=== PATIENT | male | born 1945 | race Caucasian/White ===

== ENCOUNTER 2017-08-31 10:18 | Inpatient (IN) | payer OTHER ==
[~2017-08-31] VITALS: Ht 180.3 cm; Wt 91.7 kg
[~2017-08-31 10:18] MED LIST: LASIX20 M1 PO; METOPROLOL TART50 M1 PO; TOPROL XL50 M1 PO
--- NOTE | 2017-08-31 10:20 | ED DYSPNEA/ASTHMA COMPLAINT ---
See Addendum History of Present Illness General Chief Complaint: Dyspnea (COPD, CHF, Other) Stated Complaint: BIBA SOB Source: patient Exam Limitations: clinical condition, poor historian Vital Signs & Intake/Output Vital Signs & Intake/Output Vital Signs Date Time Temp Pulse Resp B/P B/P Pulse O2 O2 Flow FiO2 Mean Ox Delivery Rate 08/31 1422 97.4 89 20 100/65 100 Nasal 2.0L Cannula 08/31 1400 87 20 105/67 98 Nasal 2.0L Cannula 08/31 1314 97.0 91 20 106/69 100 Nasal 2.0L Cannula 08/31 1223 98.5 96 20 107/69 100 Non 10L ReBreather 08/31 1123 100 Non 100% ReBreather 08/31 1114 100.7 08/31 1112 100.7 105 24 140/85 100 Non 100% ReBreather 08/31 1045 102.2 08/31 1021 102.2 120 30 175/98 98 Non 100% ReBreather Allergies Coded Allergies: No Known Allergies (02/04/16) Reconcile Medications Carvedilol 3.125 MG TABLET 1 TAB PO BID HEART (Reported) Furosemide (Lasix) 20 MG TABLET 1 TAB PO DAILY FLUID RETENTION Triage Nurses Notes Reviewed? 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 Patient denies any fever chills chest pain arm pain jaw pain and leg swelling hemoptysis nausea vomiting abdominal pain. Patient able to tolerate by mouth (Robert Barriga) Past History Medical History Any Pertinent Medical History? see below for history Cardiovascular: CHF, hypertension Surgical History Surgical History: non-contributory Psychosocial History What is your primary language Danish Family History Hx Contributory? No (Robert Barriga) Review of Systems Review of Systems Constitutional: Reports: see HPI. EENTM: Reports: no symptoms. Respiratory: Reports: see HPI, cough, short of breath. Cardiovascular: Reports: see HPI. Denies: chest pain. GI: Reports: no symptoms. Genitourinary: Reports: no symptoms. Musculoskeletal: Reports: no symptoms. Skin: Reports: no symptoms. Neurological/Psychological: Reports: no symptoms. Hematologic/Endocrine: Reports: no symptoms. Immunologic/Allergic: Reports: no symptoms. All Other Systems: Reviewed and Negative (Robert Barriga) Physical Exam Physical Exam General Appearance: mild distress Head: atraumatic Eyes: Bilateral: PERRL, EOMI, other (icteric). Ears, Nose, Throat: normal pharynx, hearing grossly normal Respiratory: chest non-tender, crackles, respiratory distress Cardiovascular: tachycardia Gastrointestinal: normal bowel sounds, soft, non-tender Extremities: TRACE BILATERAL LOWER EXTREMITY PITTING EDEMA Skin: intact Core Measures ACS in differential dx? Yes CVA/TIA Diagnosis No Sepsis Present: Yes Sepsis Focused Exam Completed? Yes (Robert Barriga) ED Sepsis Exam Date of Focused Sepsis Exam: 08/31/17 Time of Focused Sepsis Exam: 1200 Sepsis Cardiac Exam: Tachycardia Sepsis Resp Exam: CRACKLES Sepsis Cap Refill Exam: <2 Sec Sepsis Peripheral Pulse Exam: Normal Sepsis Peripheral Pulse Location: Radial Sepsis Skin Color Exam: Jaundiced Skin Temp/Moisture Exam: Hot/Dry (Robert Barriga) Progress Differential Diagnosis: asthma, AMI, bronchitis, costochondritis, CHF, COPD, musculoskeletal pain, pericarditis, pulmonary embolism, pneumonia, pneumothorax, unstable angina Plan of Care: Orders Procedure Date/time Status Nothing by Mouth 09/01 B Active TROPONIN LEVEL 08/31 2045 Active EKG 08/31 2045 Active ED Holding Orders 08/31 1700 Active Admit to inpatient 08/31 1700 Active Code Status 08/31 1700 Active LACTIC ACID 08/31 1645 Active TROPONIN LEVEL 08/31 1433 Complete EKG 08/31 1433 Active LACTIC ACID 08/31 1336 Complete Add-on Test (ER Only) 08/31 1157 Active Add-on Test (ER Only) 08/31 1117 Active CULTURE,URINE 08/31 1108 Active URINALYSIS 08/31 1108 Complete Add-on Test (ER Only) 08/31 1053 Active THYROID STIMULATING HORMONE 08/31 1038 Complete THYROXINE 08/31 1038 Complete PARTIAL THROMBOPLASTIN TIME 08/31 1038 Complete PROTHROMBIN TIME 08/31 1038 Complete LIPASE 08/31 1038 Complete DIRECT BILIRUBIN 08/31 1038 Complete AMYLASE 08/31 1038 Complete AMMONIA LEVEL 08/31 1038 Complete ARTERIAL BLOOD GAS (GEN) 08/31 1036 Complete BLOOD CULTURE 08/31 1036 Active TROPONIN LEVEL 08/31 1036 Complete LACTIC ACID 08/31 1036 Complete COMPREHENSIVE METABOLIC PANEL 08/31 1036 Complete CBC WITHOUT DIFFERENTIAL 08/31 1036 Complete B-TYPE NATRIURETIC PEP (BNP) 08/31 1036 Complete EKG 08/31 1019 Active Laboratory Tests 08/31/17 1447: Troponin I 2.42 *H 08/31/17 1347: Lactic Acid 2.8 H 08/31/17 1110: Urinalysis HEAVY H, Urine Color YEL, Urine Clarity HAZY H, Urine pH 6.0, Ur Specific [place] >= 1.030, Urine Protein 100 H, Urine Ketones NEG, Urine Nitrite NEG, Urine Bilirubin NEG, Urine Urobilinogen 1.0, Ur Leukocyte Esterase NEG, Ur Microscopic SEDIMENT EXAMINED, Urine RBC 1-3, Urine WBC 1-3 H, Ur Epithelial Cells FEW, Urine Bacteria FEW H, Granular Casts 15-25 H, Urine Hemoglobin LARGE H, Urine Glucose NEG 08/31/17 1045: pH 7.41, pCO2 14 L, pO2 154 H, HCO3 8 L, ABG O2 Sat (Measured) 98.0, P-50 ( Temp Corrected) Y, Carboxyhemoglobin 0.6 L, O2 Concentration % 100%, Temperature 102.2 H, O2 Delivery Method NRB, Phlebotomy Draw Site LEFT RADIAL 08/31/17 1038: Anion Gap 21 H, Estimated GFR 40 L, BUN/Creatinine Ratio 19.4, Glucose 139 H, Lactic Acid 9.0 H, Calcium 8.5, Total Bilirubin 5.3 H, Direct Bilirubin 2.1 H , AST 653 H, ALT 538 H, Alkaline Phosphatase 102, Ammonia < 9 L, Troponin I 2.22 *H, Jki-W-Kqwanatrspp Pept 83060 H, Total Protein 7.1, Albumin 4.3, Globulin 2.8, Albumin/Globulin Ratio 1.5, Amylase 40, Lipase 245, TSH 9.080 H, Thyroxine (T4) 4.7, PT 18.2 H, INR 1.66 H, APTT 31, CBC w Diff NO MAN DIFF REQ , RBC 4.63 L, MCV 91.8, MCH 31.6 H, MCHC 34.4, RDW 13.5, MPV 9.0, Gran % 86.0 H, Lymphocytes % 7.8 L, Monocytes % 6.2, Eosinophils % 0, Basophils % 0, Absolute Granulocytes 4.4, Absolute Lymphocytes 0.4 L, Absolute Monocytes 0.3, Absolute Eosinophils 0, Absolute Basophils 0 Microbiology 08/31 1119 BLOOD: Blood Culture - RECD 08/31 1110 URINE ROUT: Urine Culture - RECD 08/31 1038 BLOOD: Blood Culture - RECD Differential diagnoses include appendicitis CHOLEcystitis cholangitis diverticulitis Patient upon initial examination was noted to be in mild distress and respiratory distress patient has crackles on exam, patient was given nonrebreather at 6 L oxygen saturation 96%. 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 Discussed patient with Dr. Donnelly for concerns of elevated troponin at 2.2 in which she is aware, patient also had elevated creatinine where there was concern upon arrival of pulmonary embolism however due to patient's EF that IV fluids were cautiously administered Patient also has concerns of sepsis etiology of upon arrival is unknown due to patient's nontender abdomen however has elevated liver enzymes and bilirubin and crackles in shortness of breath on exam. Chest x-ray shows no overt findings of CHF he was given 500 mL of fluid resuscitation and then will receive CT angiogram and and continue to receive IV fluids after. Patient was given broad- spectrum Unasyn Discussed patient with Dr. Charles was aware discussed admission with patient and family members Patient was given IV fluids however under precautionary guidance due to patient' s EF in which his fever had resolved patient's blood pressure has been stable, heart rate significantly improved 1503- discussed CT scan results with patient there is noted obesity on CT of the chest however he was initially given IV Unasyn due to broad-spectrum antibiotic coverage, no overt findings of cholecystitis or cholangitis ultrasound was remarked showing no concerns of acute process. Discussed patient with Dr. Fink who knew about the mild elevation of second troponin however denies any chest pain per patient and which she advised not to administer heparin at this time Dr. Charles, and I discussed admission with ICU attending Dr. Higgins Diagnostic Imaging: Viewed by Me: CT Scan, Ultrasound. Radiology Impression: SEE COMMENTS CXR Impression: SEE COMMENTS Initial ED EKG: SINUS TACHYCARDIA 120 BPM Repeat EKG: unchanged (90 BPM,PVC) Comments: PATIENT: JORGE ONOFRE PRESENT AGE: 72 PATIENT ACCOUNT NO: [id number] : 45 LOCATION: [facility] ORDERING PHYSICIAN: Robert WHALEY SERVICE DATE: 08/31/17 EXAM TYPE: CAT - CT ABD & PELVIS W IV CONTRAST EXAMINATION: CT ABDOMEN AND PELVIS WITH CONTRAST CLINICAL INFORMATION: Sepsis. COMPARISON: ET of the chest dated 08/31/2017. Ultrasound of the right upper quadrant dated 08/31/2017. TECHNIQUE: Multidetector volumetric imaging was performed of the abdomen and pelvis following IV administration of 95 mL of Omnipaque 320 intravenous contrast. Sagittal and coronal reformatted images were obtained on the technologist's workstation. DLP: 1302.49 mGy-cm FINDINGS: LUNG BASES: The visualized lung bases are unremarkable. LIVER, GALLBLADDER, AND BILIARY TREE: The liver is enlarged, measuring 20.7 cm longitudinally. Heterogeneous enhancement of the liver is seen, likely related to the phase of enhancement since no corresponding abnormality of the liver parenchyma is seen on the right upper quadrant ultrasound from earlier today. No focal hepatic lesion or biliary ductal dilatation is present. Common bile duct measures 0.6 cm in diameter. The gallbladder is unremarkable with no evidence of radiopaque gallstones, gallbladder wall thickening, or obvious pericholecystic inflammatory changes. PANCREAS: The pancreas is diffusely mildly atrophic. There is a tiny 0.6 cm low-attenuation mass in the pancreatic body (series 5, image 33). SPLEEN: Unremarkable. ADRENAL GLANDS: There is slight nodular hypertrophy of the adrenal glands bilaterally. No suspicious adrenal mass. KIDNEYS AND URETERS: The kidneys are normal in size, shape, and attenuation. No hydronephrosis, hydroureter, or calculi seen. No perinephric stranding. BLADDER: Unremarkable. GASTROINTESTINAL TRACT: The small and large bowel are unremarkable. The appendix is not discretely identified but no focal inflammatory process is seen in the right lower quadrant. ABDOMINAL WALL: There is a small fat-containing umbilical hernia. LYMPH NODES: Normal. VASCULAR: Abdominal aorta is normal in caliber. Moderate atherosclerotic calcifications of the aorta are seen. Calcifications of the aortic branch vessels also noted, including the renal arteries bilaterally. PELVIC VISCERA: Prostate gland is enlarged and heterogeneous, measuring 6.9 x 5.1 x 6.4 cm. Seminal vesicles bilaterally are symmetric and unremarkable. OSSEOUS STRUCTURES: Multilevel moderate vertebral spondylosis and mild degenerative disc disease seen throughout the thoracolumbar spine. Mild facet arthropathy seen in the mid and lower lumbar spine. IMPRESSION: 1. Hepatomegaly. Heterogeneous enhancement of liver is likely related to phase of enhancement rather than liver parenchymal disease, given the normal appearance or abdominal ultrasound earlier today. Close clinical correlation is requested. 2. Tiny 0.6 cm low-attenuation mass in the pancreatic body, incompletely characterized on this exam. This is of doubtful clinical significance. Depending on clinical circumstances, conservative follow-up assessment in 12 months could be performed with the follow-up performed as an MRI/MRCP for further characterization as well as assessment of size stability. 3. Slight nodular hypertrophy of the adrenal glands without focal mass. 4. Small fat-containing umbilical hernia. 5. Moderate atherosclerotic calcifications of the aorta and branch vessels, including the renal arteries. 6. Enlarged heterogeneous prostate gland. DICTATED BY: Yennifer Sigala MD DATE/TIME DICTATED:08/31/171429 DIRECTOR GLOBAL INTELLIGENCE:NATHAN DATE/TIME TRANSCRIBED:08/31/171429 CONFIDENTIAL, DO NOT COPY WITHOUT APPROPRIATE AUTHORIZATION. <Electronically signed in Other Vendor System> SIGNED BY: Yennifer Sigala MD [id number] PATIENT: JORGE ONOFRE PRESENT AGE: 72 PATIENT ACCOUNT NO: [id number] : 45 LOCATION: [facility] ORDERING PHYSICIAN: Robert WHALEY SERVICE DATE: 08/31/17 EXAM TYPE: CAT - CTA CHEST-PULMONARY EMBOLISM EXAMINATION: CT CHEST PE STUDY CLINICAL INFORMATION: Shortness of breath. Elevated d-dimer. COMPARISON: Chest x-ray dated 08/31/2017. TECHNIQUE: Prior to contrast administration, localization images were obtained. After the administration of 95 and mL of intravenous Optiray 320, multidetector CT volume acquisition of the chest was performed. 3-D postprocessing was performed with multiplanar reconstructions and MIP images obtained at the acquisition workstation under concurrent physician supervision. DLP: 1302.49 mGy-cm. FINDINGS: Pulmonary arteries: The bolus timing on this study was acceptable for visualization of the pulmonary arterial tree. There are no intraluminal pulmonary arterial filling defects present to suggest pulmonary embolism in the main pulmonary artery, right and left main pulmonary artery, lobar and segmental branches. The right and left main pulmonary arteries are mildly enlarged, measuring 2.9 cm on the right side and 2.7 cm on the left side. Lungs: Evaluation of the lungs is limited due to breathing motion artifact and likely resultant patchy areas of groundglass opacity in the lungs bilaterally. Mild biapical pleural-based reticular nodular opacities are seen, consistent with scarring. Ill-defined small pleural-based reticular nodular opacity is seen in the right middle lobe (series 2, image 274), nonspecific, possibly due to focal atelectasis or scarring. No suspicious pulmonary nodules, masses, pleural effusion or pneumothorax. The central airways are patent. Aorta and heart: The heart is enlarged with four-chamber enlargement seen, though primarily affecting the left atrium and left ventricle. No bulging of the intraventricular septum to the left side is seen. The ascending aorta is borderline aneurysmal, measuring 4.0 cm in maximal AP diameter at the level of the right main pulmonary artery. Descending aorta at the same level measures 3.1 cm. The aortic arch just beyond the takeoff of the left subclavian artery measures 2.8 cm. Mild atherosclerotic calcifications of the aorta and mild to moderate coronary artery calcifications are seen. There is no pericardial effusion Lymphatic structures: Multiple small scattered subcentimeter sized mediastinal lymph nodes are seen. There is no lymphadenopathy. Upper abdomen: Limited evaluation of the upper abdominal viscera demonstrates no focal abnormality. Please refer to separate CT scan of the abdomen and pelvis dictation for more detailed discussion. Bones: Moderate vertebral spondylosis is seen in the thoracic spine. Small bone island is seen in the posterior right 10th rib (series 3, image 39). Mild convex right thoracolumbar scoliosis is seen. No significant focal findings. IMPRESSION: 1. No evidence of pulmonary embolism. 2. Limited assessment of the lungs due to breathing motion artifact. Patchy areas of groundglass opacity are seen in the lungs, most likely related to this breathing motion artifact. Close clinical correlation requested. No dense consolidation noted. 3. Enlarged heart with findings suspicious for dilated cardiomyopathy and pulmonary arterial hypertension. 4. Borderline aneurysmal ascending aorta with maximal AP diameter of 4.0 cm. 5. Mild to moderate coronary artery calcification. DICTATED BY: Yennifer Sigala MD DATE/TIME DICTATED:08/31/171405 DIRECTOR GLOBAL INTELLIGENCE:NATHAN DATE/TIME TRANSCRIBED:08/31/171405 PATIENT: JORGE ONOFRE PRESENT AGE: 72 PATIENT ACCOUNT NO: [id number] : 45 LOCATION: ER ORDERING PHYSICIAN: Robert WHALEY SERVICE DATE: 08/31/17 EXAM TYPE: US - US-LIMITED ABDOMEN EXAMINATION: US ABDOMEN LIMITED CLINICAL INFORMATION: Elevated liver enzymes. COMPARISON: None TECHNIQUE: Real-time imaging of the right upper quadrant abdominal viscera. FINDINGS: PANCREAS: Normal. LIVER: Normal. The liver demonstrates normal size, contour and echogenicity. No focal lesion or intrahepatic biliary duct dilatation. GALLBLADDER: Normal. The gallbladder is physiologically distended without evidence of stones, sludge, polyps, wall thickening or pericholecystic fluid. COMMON BILE DUCT: Normal in caliber measuring 0.2 cm in diameter. RIGHT KIDNEY: Normal. No hydronephrosis. No renal calculi or focal parenchymal lesions. The kidney measures 10.1 cm in maximum dimension. FREE FLUID: None. IMPRESSION: Normal right upper quadrant ultrasound. DICTATED BY: Matt Deleon MD DATE/TIME DICTATED:08/31/171303 DIRECTOR GLOBAL INTELLIGENCE:NATHAN DATE/TIME TRANSCRIBED:08/31/171303 PATIENT: JORGE ONOFRE PRESENT AGE: 72 PATIENT ACCOUNT NO: [id number] : 45 LOCATION: [facility] ORDERING PHYSICIAN: Robert WHALEY SERVICE DATE: 08/31/17 EXAM TYPE: RAD - XRY-PORTABLE CHEST XRAY EXAMINATION: XR PORTABLE CHEST CLINICAL INFORMATION: Shortness of breath. COMPARISON: Prior chest regressed, most recently 02/09/2017 TECHNIQUE: Portable frontal view of the chest was obtained. FINDINGS: There is stable cardiomegaly. The mediastinum is stable and unremarkable, accounting for rotation. The lung rodgers are clear, without infiltrate, effusion or pneumothorax. There is no acute osseous abnormality. IMPRESSION: No active cardiopulmonary disease. There is stable cardiomegaly, without congestive heart failure DICTATED BY: Fco Piña MD DATE/TIME DICTATED:08/31/171205 DIRECTOR GLOBAL INTELLIGENCE:NATHAN DATE/TIME TRANSCRIBED:08/31/171205 CONFIDENTIAL, DO NOT COPY WITHOUT APPROPRIATE AUTHORIZATION. <Electronically signed in Other Vendor System> SIGNED BY: Fco Piña MD 08/31/171215 (Robert Barriga) Departure Departure Disposition: STILL A PATIENT Condition: Guarded Clinical Impression Primary Impression: Sepsis Secondary Impressions: Elevated troponin, Lactic acid acidosis, Multiorgan failure, Pneumonia, Respiratory failure Referrals: Marsha Ratliff APRN Departure Forms: Customer Survey General Discharge Information Admission Note Spoke With: Giacomo Higgins MD Documentation of Exam: Documentation of any treatments & extenuating circumstances including Concerns Regarding Discharge (functional status, medication knowledge or non-compliance, living conditions, etc.) that warrant an admission rather than observation: [ Patient requires slow fluid resuscitation, repeat labs, IV antibiotics, infectious disease consultation GI consultation cardiology consultation repeat EKG repeat blood gas ox and supplementation case management consultation] (Robert Barriga) PA/[employer] Co-Sign Statement Statement: ED Attending supervision documentation- [X] I saw and evaluated the patient. I have also reviewed all the pertinent lab results and diagnostic results. I agree with the findings and the plan of care as documented in the PA's/[employer]'s documentation. [] I have reviewed the ED Record and agree with the PA's/[employer]'s documentation. [] Additions or exceptions (if any) to the PAs/[employer]'s note and plan are summarized below: [] (Matt Charles DO) Critical Care Note Critical Care Note Critical Care Time: 30-74 min (Robert Barriga) Critical Care Note Critical Care Time: 75-104 min Comments: Critical care time spent > 75 minutes. The patient was suffering from a critical illness that acutely impairs one or more vital organ systems and there is a high probability of imminent or life threatening deterioration in the patient's condition. During this time I was personally involved in activities including direct delivery of medical care and close supervision of the physician special events assistant in managing the patient's sepsis, consulting multiple specialists, and decision making of high complexity to assess, manipulate, and support vital organ system failure (in this case, sepsis with septic shock) and/or to prevent further life threatening deterioration of the patient's condition. The failure to initiate these interventions on an urgent basis would likely result in sudden, clinically significant or life threatening deterioration in the patient's condition. (Matt Charles DO)
[2017-08-31 10:52] LABS: ABSOLUTE BASOPHIL COUNT 0 /CUMM (0.0-0.2); ABSOLUTE EOSINOPHIL COUNT 0 /CUMM (0.0-0.7); ABSOLUTE GRANULOCYTE CT 4.4 /CUMM (1.4-6.5); ABSOLUTE LYMPH COUNT 0.4 /CUMM (1.2-3.4); ABSOLUTE MONOCYTE COUNT 0.3 /CUMM (0.10-0.60); BASOPHIL % 0 % (0.0-2.0); EOSINOPHIL % 0 % (0-5); HEMATOCRIT 42.5 % (42-52); MEAN CORPUSCULAR HGB 31.6 PG (27.0-31.0); MEAN CORPUSCULAR HGB CONC 34.4 G/DL (33.0-37.0); MEAN CORPUSCULAR VOLUME 91.8 FL (80.0-94.0); RBC DISTRIBUTION WIDTH 13.5 % (11.5-14.5); RED BLOOD CELL CT 4.63 /CUMM (4.70-6.10); WHITE BLOOD CELL COUNT 5.1 /CUMM (4.8-10.8)
[2017-08-31] MEDS ORDERED: CARVEDILOL3.125 M1 PO (11:12)
[2017-08-31 11:15] LABS: PLATELET COUNT 52 /CUMM (130-400)
[2017-08-31 11:36] LABS: PT 18.2 SEC (9.4-12.5); PTT 31 SEC (25-37)
--- NOTE | 2017-08-31 12:16 | RADIOLOGY REPORT ---
EXAMINATION: XR PORTABLE CHEST CLINICAL INFORMATION: Shortness of breath. COMPARISON: Prior chest regressed, most recently 02/09/2017 TECHNIQUE: Portable frontal view of the chest was obtained. FINDINGS: There is stable cardiomegaly. The mediastinum is stable and unremarkable, accounting for rotation. The lung rodgers are clear, without infiltrate, effusion or pneumothorax. There is no acute osseous abnormality. IMPRESSION: No active cardiopulmonary disease. There is stable cardiomegaly, without congestive heart failure
--- NOTE | 2017-08-31 13:09 | ULTRASOUND REPORT ---
EXAMINATION: US ABDOMEN LIMITED CLINICAL INFORMATION: Elevated liver enzymes. COMPARISON: None TECHNIQUE: Real-time imaging of the right upper quadrant abdominal viscera. FINDINGS: PANCREAS: Normal. LIVER: Normal. The liver demonstrates normal size, contour and echogenicity. No focal lesion or intrahepatic biliary duct dilatation. GALLBLADDER: Normal. The gallbladder is physiologically distended without evidence of stones, sludge, polyps, wall thickening or pericholecystic fluid. COMMON BILE DUCT: Normal in caliber measuring 0.2 cm in diameter. RIGHT KIDNEY: Normal. No hydronephrosis. No renal calculi or focal parenchymal lesions. The kidney measures 10.1 cm in maximum dimension. FREE FLUID: None. IMPRESSION: Normal right upper quadrant ultrasound.
--- NOTE | 2017-08-31 14:38 | CT SCAN REPORT ---
EXAMINATION: CT CHEST PE STUDY CLINICAL INFORMATION: Shortness of breath. Elevated d-dimer. COMPARISON: Chest x-ray dated 08/31/2017. TECHNIQUE: Prior to contrast administration, localization images were obtained. After the administration of 95 and mL of intravenous Optiray 320, multidetector CT volume acquisition of the chest was performed. 3-D postprocessing was performed with multiplanar reconstructions and MIP images obtained at the acquisition workstation under concurrent physician supervision. DLP: 1302.49 mGy-cm. FINDINGS: Pulmonary arteries: The bolus timing on this study was acceptable for visualization of the pulmonary arterial tree. There are no intraluminal pulmonary arterial filling defects present to suggest pulmonary embolism in the main pulmonary artery, right and left main pulmonary artery, lobar and segmental branches. The right and left main pulmonary arteries are mildly enlarged, measuring 2.9 cm on the right side and 2.7 cm on the left side. Lungs: Evaluation of the lungs is limited due to breathing motion artifact and likely resultant patchy areas of groundglass opacity in the lungs bilaterally. Mild biapical pleural-based reticular nodular opacities are seen, consistent with scarring. Ill-defined small pleural-based reticular nodular opacity is seen in the right middle lobe (series 2, image 274), nonspecific, possibly due to focal atelectasis or scarring. No suspicious pulmonary nodules, masses, pleural effusion or pneumothorax. The central airways are patent. Aorta and heart: The heart is enlarged with four-chamber enlargement seen, though primarily affecting the left atrium and left ventricle. No bulging of the intraventricular septum to the left side is seen. The ascending aorta is borderline aneurysmal, measuring 4.0 cm in maximal AP diameter at the level of the right main pulmonary artery. Descending aorta at the same level measures 3.1 cm. The aortic arch just beyond the takeoff of the left subclavian artery measures 2.8 cm. Mild atherosclerotic calcifications of the aorta and mild to moderate coronary artery calcifications are seen. There is no pericardial effusion Lymphatic structures: Multiple small scattered subcentimeter sized mediastinal lymph nodes are seen. There is no lymphadenopathy. Upper abdomen: Limited evaluation of the upper abdominal viscera demonstrates no focal abnormality. Please refer to separate CT scan of the abdomen and pelvis dictation for more detailed discussion. Bones: Moderate vertebral spondylosis is seen in the thoracic spine. Small bone island is seen in the posterior right 10th rib (series 3, image 39). Mild convex right thoracolumbar scoliosis is seen. No significant focal findings. IMPRESSION: 1. No evidence of pulmonary embolism. 2. Limited assessment of the lungs due to breathing motion artifact. Patchy areas of groundglass opacity are seen in the lungs, most likely related to this breathing motion artifact. Close clinical correlation requested. No dense consolidation noted. 3. Enlarged heart with findings suspicious for dilated cardiomyopathy and pulmonary arterial hypertension. 4. Borderline aneurysmal ascending aorta with maximal AP diameter of 4.0 cm. 5. Mild to moderate coronary artery calcification.
--- NOTE | 2017-08-31 14:56 | CT SCAN REPORT ---
EXAMINATION: CT ABDOMEN AND PELVIS WITH CONTRAST CLINICAL INFORMATION: Sepsis. COMPARISON: ET of the chest dated 08/31/2017. Ultrasound of the right upper quadrant dated 08/31/2017. TECHNIQUE: Multidetector volumetric imaging was performed of the abdomen and pelvis following IV administration of 95 mL of Omnipaque 320 intravenous contrast. Sagittal and coronal reformatted images were obtained on the technologist's workstation. DLP: 1302.49 mGy-cm FINDINGS: LUNG BASES: The visualized lung bases are unremarkable. LIVER, GALLBLADDER, AND BILIARY TREE: The liver is enlarged, measuring 20.7 cm longitudinally. Heterogeneous enhancement of the liver is seen, likely related to the phase of enhancement since no corresponding abnormality of the liver parenchyma is seen on the right upper quadrant ultrasound from earlier today. No focal hepatic lesion or biliary ductal dilatation is present. Common bile duct measures 0.6 cm in diameter. The gallbladder is unremarkable with no evidence of radiopaque gallstones, gallbladder wall thickening, or obvious pericholecystic inflammatory changes. PANCREAS: The pancreas is diffusely mildly atrophic. There is a tiny 0.6 cm low-attenuation mass in the pancreatic body (series 5, image 33). SPLEEN: Unremarkable. ADRENAL GLANDS: There is slight nodular hypertrophy of the adrenal glands bilaterally. No suspicious adrenal mass. KIDNEYS AND URETERS: The kidneys are normal in size, shape, and attenuation. No hydronephrosis, hydroureter, or calculi seen. No perinephric stranding. BLADDER: Unremarkable. GASTROINTESTINAL TRACT: The small and large bowel are unremarkable. The appendix is not discretely identified but no focal inflammatory process is seen in the right lower quadrant. ABDOMINAL WALL: There is a small fat-containing umbilical hernia. LYMPH NODES: Normal. VASCULAR: Abdominal aorta is normal in caliber. Moderate atherosclerotic calcifications of the aorta are seen. Calcifications of the aortic branch vessels also noted, including the renal arteries bilaterally. PELVIC VISCERA: Prostate gland is enlarged and heterogeneous, measuring 6.9 x 5.1 x 6.4 cm. Seminal vesicles bilaterally are symmetric and unremarkable. OSSEOUS STRUCTURES: Multilevel moderate vertebral spondylosis and mild degenerative disc disease seen throughout the thoracolumbar spine. Mild facet arthropathy seen in the mid and lower lumbar spine. IMPRESSION: 1. Hepatomegaly. Heterogeneous enhancement of liver is likely related to phase of enhancement rather than liver parenchymal disease, given the normal appearance or abdominal ultrasound earlier today. Close clinical correlation is requested. 2. Tiny 0.6 cm low-attenuation mass in the pancreatic body, incompletely characterized on this exam. This is of doubtful clinical significance. Depending on clinical circumstances, conservative follow-up assessment in 12 months could be performed with the follow-up performed as an MRI/MRCP for further characterization as well as assessment of size stability. 3. Slight nodular hypertrophy of the adrenal glands without focal mass. 4. Small fat-containing umbilical hernia. 5. Moderate atherosclerotic calcifications of the aorta and branch vessels, including the renal arteries. 6. Enlarged heterogeneous prostate gland.
--- NOTE | 2017-08-31 16:11 | History & Physical ---
Jerzy CORDOVA,[facility] 08/31/17 1611: General Information and HPI MD Statement: I have seen and personally examined JORGE ONFORE and documented this H&P. The patient is a 72 year old M who presented with a patient stated chief complaint of generalized weakness. Source of Information: patient, family, ED Exam Limitations: no limitations History of Present Illness: This is a 72-year-old pleasant gentleman past medical history of congestive heart failure with a reported EF of approximately 20% (reported by ED staff after conversation with pt's edge roller), hypertension presented to [place] ED for evaluation of a 3 day onset of generalized malaise. Patient reports that for the past 3 days he has felt weak especially when ambulating. Associated symptoms include shortness of breath which was mild in the past 2 days however today, progressively worsened prompting him to present to the ED. He reports decreased oral intake in the past 3 days. He denies any fever, chills, significant cough, abdominal pain, dysuria, sick contacts or recent travel. He also denies any chest pain, palpitation, increased lower extremity swelling, orthopnea or any PND. At baseline, patient reports that he ambulates freely without any assistance, independent with his ADLs and normally does not experience any shortness of breath. Patient's reports that he sees a naturopathic doctor who has him taking vitamin products and possible herbal products(?). Allergies/Medications Allergies: Coded Allergies: No Known Allergies (02/04/16) Home Med list Carvedilol 3.125 MG TABLET 1 TAB PO BID HEART (Reported) Furosemide (Lasix) 20 MG TABLET 1 TAB PO DAILY FLUID RETENTION Past History Travel History Traveled to [place] past 21 day No Medical History Cardiovascular: CHF, hypertension Surgical History Surgical History: non-contributory Past Family/Social History Psychosocial History ETOH Use: denies use Illicit Drug Use: denies illicit drug use Review of Systems Review of Systems Constitutional: Reports: see HPI. EENTM: Reports: no symptoms. Cardiovascular: Reports: no symptoms. Respiratory: Reports: see HPI. GI: Reports: no symptoms. Genitourinary: Reports: no symptoms. Musculoskeletal: Reports: no symptoms. Skin: Reports: no symptoms. Neurological/Psychological: Denies: anxiety, ataxia. Hematologic/Endocrine: Denies: bruising, bleeding. Immunologic/Allergic: Denies: splenectomy. All Other Systems: Reviewed and Negative Exam & Diagnostic Data Last 24 Hrs of Vital Signs/I&O Vital Signs Date Time Temp Pulse Resp B/P B/P Pulse O2 O2 Flow FiO2 Mean Ox Delivery Rate 09/01 0016 60 09/01 0000 100.5 82 20 72/00 98 Ventilator 60% 08/31 2330 50 59/00 08/31 2200 60 08/31 2154 92 Ventilator 60% 08/31 2052 80 08/31 2042 101.8 95 20 127/84 98 Ventilator 08/31 1936 97.0 116 24 162/100 08/31 1845 97.0 116 24 162/100 08/31 1747 98.2 112 24 167/103 82 Nasal 3.0L Cannula 08/31 1422 97.4 89 20 100/65 100 Nasal 2.0L Cannula 08/31 1400 87 20 105/67 98 Nasal 2.0L Cannula 08/31 1314 97.0 91 20 106/69 100 Nasal 2.0L Cannula 08/31 1223 98.5 96 20 107/69 100 Non 10L ReBreather 08/31 1123 100 Non 100% ReBreather 08/31 1114 100.7 08/31 1112 100.7 105 24 140/85 100 Non 100% ReBreather 08/31 1045 102.2 08/31 1021 102.2 120 30 175/98 98 Non 100% ReBreather Intake & Output 09/01 0800 09/01 0000 08/31 1600 Intake Total 401 1600 Output Total 260 100 Balance 141 1500 Intake, IV 401 1600 Intake, Oral 0 Number 0 Bowel Movements Output, 100 Gastric Drainage Output, Urine 160 100 Patient 91.739 kg 88.451 kg Weight Weight Bed scale Reported by Patient Measurement Method Physical Exam General Appearance Alert, Oriented X3, Moderate Distress Skin No Rashes, No Breakdown, No Significant Lesion, jaundiced Skin Temp/Moisture Exam: Cool/Dry Sepsis Skin Exam (color): Normal for Ethnicity HEENT Atraumatic, PERRLA, dry oral mucosa, saclera icterus Neck Supple, No JVD Lymphatic Cervical nl Cardiovascular Regular Rate, Normal S1, Normal S2 Lungs Clear to Auscultation, Normal Air Movement, accessory muscles use noted during respiration. Abdomen Normal Bowel Sounds, Soft, No Tenderness Neurological Normal Speech, Strength at 5/5 X4 Ext, Normal Tone, Sensation Intact Extremities No Clubbing, No Edema Vascular Normal Pulses Sepsis Peripheral Pulse Location: Radial Sepsis Peripheral Pulse Exam: Normal Sepsis Cap Refill Exam: <2 Sec Last 24 Hrs of Labs/Clive: Laboratory Tests 09/01/17 0230: Troponin I Cancelled 08/31/172055: Lactic Acid 7.9 H 08/31/172029: Troponin I 3.22 *H 08/31/172024: pH 7.12 *L, pCO2 34 L, pO2 168 H, HCO3 11 L, ABG O2 Sat (Measured) 97.0, P-50 (Temp Corrected) Y, Carboxyhemoglobin 0.3 L, O2 Concentration % 80%, Temperature 101.8 H, Respiration Rate 20, O2 Delivery Method ESPRIT VENT, Vent Mode AC, Expiratory Pressure 5, Tidal Volume 550, Pressure Support 80, Phlebotomy Draw Site LEFT BRACHIAL 08/31/171956: Methadone Screen Cancelled, Barbiturate Screen Cancelled, Ur Phencyclidine Scrn Cancelled, Amphetamines Screen Cancelled, U Benzodiazepines Scrn Cancelled, Urine Cocaine Screen Cancelled, Urine Cannabis Screen Cancelled 08/31/17 1945: Lactic Acid Cancelled 08/31/17 1645: Lactic Acid 3.3 H 08/31/17 1447: Troponin I 2.42 *H 08/31/17 1347: Lactic Acid 2.8 H 08/31/17 1110: Urinalysis HEAVY H, Urine Color YEL, Urine Clarity HAZY H, Urine pH 6.0, Ur Specific [place] >= 1.030, Urine Protein 100 H, Urine Ketones NEG, Urine Nitrite NEG, Urine Bilirubin NEG, Urine Urobilinogen 1.0, Ur Leukocyte Esterase NEG, Ur Microscopic SEDIMENT EXAMINED, Urine RBC 1-3, Urine WBC 1-3 H, Ur Epithelial Cells FEW, Urine Bacteria FEW H, Granular Casts 15-25 H, Urine Hemoglobin LARGE H, Urine Glucose NEG 08/31/17 1110: Urine Opiates Screen < 100, Methadone Screen < 40, Barbiturate Screen < 60, Ur Phencyclidine Scrn < 6.00, Amphetamines Screen < 100, U Benzodiazepines Scrn < 85, Urine Cocaine Screen < 50, Urine Cannabis Screen < 5.00, Urine Osmolality 554, Ur Random Creatinine 168.7, Ur Random Sodium < 5 L, Ur Random Potassium 69.4, Fraction Sodium Excret 08/31/17 1045: pH 7.41, pCO2 14 L, pO2 154 H, HCO3 8 L, ABG O2 Sat (Measured) 98.0, P-50 ( Temp Corrected) Y, Carboxyhemoglobin 0.6 L, O2 Concentration % 100%, Temperature 102.2 H, O2 Delivery Method NRB, Phlebotomy Draw Site LEFT RADIAL 08/31/17 1038: Anion Gap 21 H, Estimated GFR 40 L, BUN/Creatinine Ratio 19.4, Glucose 139 H, Lactic Acid 9.0 H, Calcium 8.5, Phosphorus 5.1 H, Total Bilirubin 5.3 H, Direct Bilirubin 2.1 H, AST 653 H, ALT 538 H, Alkaline Phosphatase 102, Ammonia < 9 L, Troponin I 2.22 *H, Gwo-J-Nyqcavmfzyt Pept 13601 H, Total Protein 7.1, Albumin 4.3, Globulin 2.8, Albumin/Globulin Ratio 1.5, Amylase 40, Lipase 245, TSH 9.080 H, Thyroxine (T4) 4.7, PT 18.2 H, INR 1.66 H, APTT 31, CBC w Diff MAN DIFF ORDERED, RBC 4.63 L, MCV 91.8, MCH 31.6 H, MCHC 34.4, RDW 13.5, MPV 9.0, Gran % 86.0 H, Lymphocytes % 7.8 L, Monocytes % 6.2, Eosinophils % 0, Basophils % 0, Absolute Granulocytes 4.4, Segmented Neutrophils 66, Band Neutrophils 20 H, Absolute Lymphocytes 0.4 L, Lymphocytes 11 L, Monocytes 3, Absolute Monocytes 0.3, Absolute Eosinophils 0, Absolute Basophils 0, Platelet Estimate VERIFIED BY SMEAR, Normochromic RBCs VERIFIED, Ovalocytes FEW, Reading Cells FEW, Hepatitis A IgM Ab Pending, Hep Bs Antigen Pending, Hep B Core IgM Ab Conf Pending, Hepatitis C Antibody Pending Microbiology 08/31 2229 UPPER RESP: Surveillance Culture - RECD 08/31 2229 GI: Surveillance Culture - RECD 08/31 2199 LOWER RESP: Respiratory Culture - RES 08/31 2199 LOWER RESP: Gram Stain - RES 08/31 2152 LOWER RESP: Respiratory Culture - CAN Cancelled: Cancelled via OE: CANCEL 08/31 2152 LOWER RESP: Gram Stain - CAN Cancelled: Cancelled via OE: CANCEL 08/31 2054 NASOPHARYN: Influenza Virus A & B Rapid Smear - COMP 08/31 1119 BLOOD: Blood Culture - RECD 08/31 1110 URINE ROUT: Urine Culture - RECD 08/31 1038 BLOOD: Blood Culture - RECD Diagnostic Data Other Results SERVICE DATE: 08/31/17-115 EXAM TYPE: CAT - CT ABD & PELVIS W IV CONTRAST EXAMINATION: CT ABDOMEN AND PELVIS WITH CONTRAST CLINICAL INFORMATION: Sepsis. COMPARISON: ET of the chest dated 08/31/2017. Ultrasound of the right upper quadrant dated 08/31/2017. TECHNIQUE: Multidetector volumetric imaging was performed of the abdomen and pelvis following IV administration of 95 mL of Omnipaque 320 intravenous contrast. Sagittal and coronal reformatted images were obtained on the technologist's workstation. DLP: 1302.49 mGy-cm FINDINGS: LUNG BASES: The visualized lung bases are unremarkable. LIVER, GALLBLADDER, AND BILIARY TREE: The liver is enlarged, measuring 20.7 cm longitudinally. Heterogeneous enhancement of the liver is seen, likely related to the phase of enhancement since no corresponding abnormality of the liver parenchyma is seen on the right upper quadrant ultrasound from earlier today. No focal hepatic lesion or biliary ductal dilatation is present. Common bile duct measures 0.6 cm in diameter. The gallbladder is unremarkable with no evidence of radiopaque gallstones, gallbladder wall thickening, or obvious pericholecystic inflammatory changes. PANCREAS: The pancreas is diffusely mildly atrophic. There is a tiny 0.6 cm low-attenuation mass in the pancreatic body (series 5, image 33). SPLEEN: Unremarkable. ADRENAL GLANDS: There is slight nodular hypertrophy of the adrenal glands bilaterally. No suspicious adrenal mass. KIDNEYS AND URETERS: The kidneys are normal in size, shape, and attenuation. No hydronephrosis, hydroureter, or calculi seen. No perinephric stranding. BLADDER: Unremarkable. GASTROINTESTINAL TRACT: The small and large bowel are unremarkable. The appendix is not discretely identified but no focal inflammatory process is seen in the right lower quadrant. ABDOMINAL WALL: There is a small fat-containing umbilical hernia. LYMPH NODES: Normal. VASCULAR: Abdominal aorta is normal in caliber. Moderate atherosclerotic calcifications of the aorta are seen. Calcifications of the aortic branch vessels also noted, including the renal arteries bilaterally. PELVIC VISCERA: Prostate gland is enlarged and heterogeneous, measuring 6.9 x 5.1 x 6.4 cm. Seminal vesicles bilaterally are symmetric and unremarkable. OSSEOUS STRUCTURES: Multilevel moderate vertebral spondylosis and mild degenerative disc disease seen throughout the thoracolumbar spine. Mild facet arthropathy seen in the mid and lower lumbar spine. IMPRESSION: 1. Hepatomegaly. Heterogeneous enhancement of liver is likely related to phase of enhancement rather than liver parenchymal disease, given the normal appearance or abdominal ultrasound earlier today. Close clinical correlation is requested. 2. Tiny 0.6 cm low-attenuation mass in the pancreatic body, incompletely characterized on this exam. This is of doubtful clinical significance. Depending on clinical circumstances, conservative follow-up assessment in 12 months could be performed with the follow-up performed as an MRI/MRCP for further characterization as well as assessment of size stability. 3. Slight nodular hypertrophy of the adrenal glands without focal mass. 4. Small fat-containing umbilical hernia. 5. Moderate atherosclerotic calcifications of the aorta and branch vessels, including the renal arteries. 6. Enlarged heterogeneous prostate gland. DICTATED BY: Jovon CORDOVA,Yennifer Sanz Assessment/Plan Assessment: 72-year-old gentleman with a reported history of cardiomyopathy with an EF of 20 %, hypertension presented with 3 day onset of progressively worsening malaise and shortness of breath. On presentation , patient is found to be on moderate distress with increased work of breathing, laboratory workup was remarkable for lactic acidosis anion gap, bandemia, elevated troponins, transaminitis, hyperbilirubinemia. Radiological studies of his abdomen, pelvis and lungs are not remarkable for any acute infectious pathology, her UA is unremarkable too.. Impression and plan Respiratory: Acute hypoxic respiratory failure as evident by increased work of breathing, tachypnea (respiratory rate up to 30), refractory to Ventimask and BiPAP and eventually requiring mechanical ventilation. Other than elevated proBNP, patient did not have any clinical signs such as JVD, crackles/rales, pitting edema, or chest x-ray finding suggestive of acute decompensated CHF. Even though patient did have bandemia, fever, and lactic acidosis, chest x-ray was not suggestive of any acute infectious etiology. Will continue with intubation in the settings of 5-60%, respiratory rate 20, PEEP of 5, VT of 550 adjust accordingly based on ABGs. Infection: Meets SIRS criteria with tachypnea, tachycardia and fever. No leukocytosis, however bandemia present. The lactic acidosis and fever is highly suggestive of infection. However, no source of infection has been identified so far as his chest x-ray was unremarkable, his CT of the abdomen did not show any acute infectious pathology, and his UA was unremarkable for infection either. Patient received Unasyn at the ED, given that his lactic acidosis and fever are not abating, will implement broad coverage with ceftazidime and vancomycin. We will await blood cultures and consider ID consult tomorrow morning if fevers are persistent. Due to hx of significant cardiomyopathy, we are limited on the amount of IVF hydration we can administer. Cardiac: There is elevation of troponins without any complaints of chest pain or EKG changes. Most likely type 2 MS 2/2 MS secondary to supply demand mismatch. Cardiology is already on board, and per ED staff, cardiology currently does not feel patient elevation of troponins warrant initiation of heparin especially in the absence of chest pain or EKG changes. Will continue to trend troponins and EKG, will also await further cardiology recommendation. Hematology: Bandemia without leukocytosis which is possibly secondary to infection. Isolated bandemia has been found in some studies to be associated with greater odds of positive blood cultures. There is also marked thrombocytopenia with a count of 52,000. Differentials of thrombocytopenia are broad based on whether it's a consumptive etiology (infection, DIC,ITP) versus production (drugs, hepatitis, HIV, EBV, CMV, bone marrow suppression, leukemias) . Will continue to trend platelet levels and consider transfusion with the following parameters: Below 50,000 with acute bleeding, below 20,000 with fever, or below 10,000. Also obtain a hepatitis panel serology, EBV and CMV and HIV. Metabolic: Anion gap metabolic acidosis with respiratory compensation. Secondary to lactic acidosis and acute kidney injury. There is also transaminitis with elevated bilirubin levels both direct and indirect, is noted that imaging does not show any acute biliary pathology, the liver even though was enlargement there was no cirrhotic appearing features. His INR and PTT is also elevated, which further suggests liver damage. The school most likely be secondary to ischemic hepatitis versus cardiac hepatopathy. Pt is also presented with acute kidney injury which is most likely secondary to dehydration. Will start a bicarbonate drip in the setting of a pH of 7.1 and continues metabolic acidosis, will follow-up with an ABG 4 hours later and make a decision whether to continue or stop.Regarding the transaminitis sent elevated liver enzymes will obtain GI consult. Overall, patient's clinical condition is most likely suggestive of multiorgan failure secondary to infection. Alimentary: We'll place NG tube for medications. Neuro: Prior to intubation patient was alert and oriented 3 no neurological focality noted on physical exam. As Ranked By This Provider Problem List: 1. Lactic acid acidosis 2. Multiorgan failure 3. Respiratory failure 4. Elevated troponin 5. Hyperbilirubinemia 6. Transaminitis 7. ANEESH (acute kidney injury) Core Measures/Misc (12/28) Acute Coronary Syndrome ACS Diagnosis: No Congestive Heart Failure Congestive Heart Failure Diagnosis No Cerebrovascular Accident CVA/TIA Diagnosis: No VTE (View Protocol) VTE Risk Factors Acute Medical Illness No Mechanical VTE Prophylaxis d/t N/A MechProphylax Ordered No VTE Pharm Prophylaxis d/t Platelets below ref range Sepsis (View protocol) Sepsis Present: No Giacomo Higgins MD 08/31/17 1746: Attending MD Review Statement Attending Statement Attending MD Statement: examined this patient, discuss w/resident/PA/DROP PRESS HAND, agreed w/resident/PA/DROP PRESS HAND, discussed with family, reviewed EMR data (avail), discussed with nursing, discussed with case mgmt, reviewed images, amended to note Attending Assessment/Plan: Giacomo Doshi M.D. have examined this patient, reviewed available EMR data, personally reviewed images, discussed with resident/PA/DROP PRESS HAND, discussed management plan with housestaff and nursing staff, discussed managment plan all of healthcare providers, discussed management plan with patient and/or family, agreed with resident/PA/DROP PRESS HAND. The past history and parts of the chart have been autopopulated. Impression 72 year old man * hepatic failure/jaundice - ?naturopathic medicine ingestion vs hepatic congestion from sepsis or heart failure * congestive heart failure * ANEESH - sepsis/prerenal most likely vs ATN * metabolic acidosis/lactic acidosis * troponinemia Plan -GI consultation -address code status -hydration -broad spectrum abx -cardiology consultation -monitor blood work -check viral panels -check ECHO -supplement o2 to achieve goal spo2 >92% TTS 40 min
--- NOTE | 2017-08-31 20:46 | RADIOLOGY REPORT ---
EXAMINATION: CHEST 1 VIEW CLINICAL INFORMATION: Increased work of breathing. Intubated. COMPARISON: Same day chest radiograph obtained at 1124 hours TECHNIQUE: An AP view of the chest was obtained at 2011 hours. FINDINGS: The tip of the endotracheal tube is approximately 3.5 cm above the erum. The cardiac silhouette is enlarged, though stable. There is increasing perihilar fullness and mild interstitial prominence likely indicative of mild vascular congestion. There are no consolidations. There are neither pleural effusions nor pneumothoraces. The osseous structures are stable. IMPRESSION: Endotracheal tube in place. Stable cardiomegaly with likely mild vascular congestion.
--- NOTE | 2017-08-31 22:41 | RADIOLOGY REPORT ---
EXAMINATION: XR PORTABLE CHEST CLINICAL INFORMATION: NG tube placement confirmation COMPARISON: Chest x-ray of 08/31/2017 performed at 8:11 PM. Chest CTA of 08/31/2017. TECHNIQUE: Portable frontal view of the chest was obtained. FINDINGS: Nasogastric tube terminates in the expected location of the stomach in the left upper abdominal quadrant. Evaluation of the visualized lower chest is somewhat limited due to over penetration. Moderate to marked cardiomegaly. IMPRESSION: Nasogastric tube terminates in the left upper abdominal quadrant in the expected location of the stomach.
[2017-09-01] VITALS: BP 72/00
--- NOTE | 2017-09-01 00:33 | Event Note ---
Event Note Event Note: Situtation: Code status and patient prognosis Brief Assesment: Had an extensive discussion multiple times with patients POA ( ) and patients sibling regarding patient deteriorating status, especially the low blood pressures. Attending, Dr Anaya was also present). Initially the POA and family decided they wanted initiation of pressors with central line placement but no CPR. After peripheral pressors were started and preparation for a central lilne were being made, patients POA () communicated with us that she no longer wants a central line placed and to place the patient on "comfort status". Patient's was informed that the peripheral pressors can administered for extended hours without a central line. She was made aware of the risks associated which included necrosis. Patient's understood and requested the process to be on for about an hour longer until the processing tech arrives and then to be discontinued. Assessment and plan: CODE STATUS was changed to comfort per patient's wishes, and pressors will be stopped once the processing tech arrives.
[2017-09-01 02:37] VITALS: BP 80/00
--- NOTE | 2017-09-01 03:22 | Event Note ---
Event Note Event Note: Critical care event note after midnight: Family member (patient's - Dianelys Hill) had already been notified about patient's condition by previous housestaff with guarded prognosis and deteriorating condition, while she had asked to change the level of care to comfort measures only, and do not resuscitate, do not place central line for IV pressors (BP increasing/maintaining medications). Patient was intubated already and was on IV pressors via peripheral line. She then asked for us to keep the IV pressors via peripheral line, keep him intubated, and discontinue rest of the medications/investigations as the plan was only to provide comfort measures, ONLY UNTIL a instrument lens grinder could be called in for patient's last rites. Nursing staff searched for instrument lens grinder, who came in and performed the last rites, and with family's consent, IV pressors (Levophed and Neosynephrine) were discontinued, IV Morphine was given for the pain/discomfort before extubation. Extubation orders were placed and the patient at 0252 hrs of 2017. was declared after performing cardiac, respiratory, and neurological examination. Hospitalist implementation project coordinator Dr Anaya, and ICU attending Dr Higgins were informed about the developments along the way. News provided to the family and upon questioning regarding wishes to go for autopsy, patient's said yes to go for autopsy. Paperwork is being prepared accordingly as events unfolded.
--- NOTE | 2017-09-01 12:29 | Admission Certification ---
Admission Certification Certification Statement - As attending physician, I certify that at the time of - admission, based on clinical presentation, severity of - symptoms, need for further diagnostic testing and - therapeutic interventions, and risk of adverse outcomes - without in-hospital treatment, in my clinical assessment, - this patient requires an acute hospital stay for a minimum - of two nights or longer. I have also considered psychsocial - factors such as support system, advanced age, financial - issues, cognitive issues, and failed out-patient treatments, - past re-admission history, safety of patient, and lack of - compliance as applicable. Specific rationale supporting this admission is: icu admission hepatic failure sepsis
== END 2017-09-01 06:11 | disposition expired | DRG 871 ==
LOC: ERH 10:18 → ERHI 17:00 → ENRESERV 17:55 → ENTRNSPT 21:03 → EDTRNSPTSTS 21:05 → EDTRNSPT 21:05 → CRI 21:16 → CMPTRNSPT 21:26 → CRI 09-01 06:11
PROVIDERS: Physician Assistant
DX: A41.9 Sepsis, unspecified organism (principal); J96.21 Acute and chronic respiratory failure with hypoxia; E87.2 Acidosis; N17.9 Acute kidney failure, unspecified; R65.11 Systemic inflammatory response syndrome (SIRS) of non-infectious origin with acute organ dysfunction; E80.6 Other disorders of bilirubin metabolism; R74.0 Nonspecific elevation of levels of transaminase and lactic acid dehydrogenase [LDH]; R79.89 Other specified abnormal findings of blood chemistry
CPT/HCPCS: 84133; 84300; CCU; 71045; 74177; 80307; 81001; 82570; 87040; 87070; 87086; 87804; 87804-59; 93005; 93010; 94799; 96374; 96375; 99291; J0131; J0330; J0713; J3370; J7040; J7060